=== PATIENT | female | born 1960 | race Hispanic/Latino ===

== ENCOUNTER 2016-09-20 09:51 | Outpatient (CLI) | payer OTHER ==
[2016-09-20 12:32] LABS: Hemoglobin A1c 6.9 % (4.0-6.0)
== END 2016-09-20 09:52 | disposition home or self-care (01) ==
LOC: NAVSJIPCSP 09:51
PROVIDERS: ATTEND Family Medicine
DX: R73.01 Impaired fasting glucose (principal)
CPT/HCPCS: 36415; 83036; 83525

== ENCOUNTER 2018-09-12 12:56 | Outpatient (CLI) | payer OTHER ==
--- NOTE | 2018-09-12 16:29 | ULT ---
BILATERAL RENAL ULTRASOUND WITH CABRERA SCALE AND DOPPLER COLOR FLOW IMAGIN09/12/18 CLINICAL HISTORY: Dysuria. FINDINGS: There is a slight asymmetry of the demonstrated renal lengths, left kidney longer than the right, jasvir roximately 12 cm and 10 cm respectively. No suspicious renal lesion or overt hydronephrosis. Urinary bladder is mildly distended with associated mild wall prominence that may therefore relate to physiol ogic thickening. There is mild postvoid residua. IMPRESSION: No acute abnormality of the kidneys is identified by sonographic evaluation. POS: C
== END 2018-09-12 12:57 | disposition home or self-care (01) ==
LOC: NAV ULT 12:56
PROVIDERS: ATTEND Family Medicine
DX: R30.0 Dysuria (principal)
CPT/HCPCS: 76770